=== PATIENT | male | born 1950 | race African-American/Black ===

== ENCOUNTER 2019-05-09 01:51 | Emergency (ER) | payer OTHER, BC ==
[2019-05-09 01:55] VITALS: Ht 180.3 cm
[2019-05-09 02:42] LABS: BASOPHIL % 0.4 % (0-2); PLATELET COUNT 141 x10^3mcL (130-400)
[2019-05-09 02:43] LABS: RED CELL DISTRIBUTION WIDTH 16.6 % (11.5-14.5)
[2019-05-09 02:45] LABS: CALCIUM 8.5 mg/dL (8.5-10.1); CARBON DIOXIDE 28.9 mmol/L (21-32); CREATININE SERUM 1.7 mg/dL (0.7-1.3); POTASSIUM SERUM 3.5 mmol/L (3.5-5.1)
[2019-05-09 02:49] LABS: ALBUMIN 3.4 g/dL (3.4-5.0); BILIRUBIN TOTAL 0.34 mg/dL (0.20-1.00)
[2019-05-09 07:05] VITALS: BP 120/85
== END 2019-05-09 07:05 | disposition short-term general hospital (02) ==
LOC: ED 01:51
PROVIDERS: Emergency Medicine
DX: I26.92 Saddle embolus of pulmonary artery without acute cor pulmonale (principal); R79.89 Other specified abnormal findings of blood chemistry; I10 Essential (primary) hypertension; E78.00 Pure hypercholesterolemia, unspecified; Z98.890 Other specified postprocedural states
CPT/HCPCS: 36600; 83880; 85378; J1644; J7030; J7050; Q0092; Q9967